=== PATIENT | female | born 1990 | race Caucasian/White ===

== ENCOUNTER 2020-01-25 00:10 | Inpatient (IN) | payer OTHER ==
[~2020-01-25] VITALS: Ht 175.3 cm; Wt 98.4 kg
--- NOTE | 2020-01-25 10:13 | PR ---
[facility] [address] [facility] [place], [place] [address] Signed Progress Notes IP Datetime Report Generated by CPN: 01/25/2020 10:12 PROGRESS NOTES: [id number] Impression: Normal Progression of Labor Procedures: Artificial ROM Plan: Continue Present Management; Anticipate Vaginal Delivery VITAL SIGNS: [id number] Vital Signs: Reviewed; Within Normal Limits EXAM: [id number] Dilatation: 2.0 Effacement: 75 Station: -2 MEMBRANES: [id number] Membranes Status: Ruptured ROM Note: By Dr. Jackson Comments: Tolerating contracitons well, but would like Epidural soon. FETUS A: [id number] FHR Baseline: 130 Variability: Moderate 6-25bpm Accelerations: 15X15 Presentation: Vertex FETUS B: [id number] Signing Physician: Jaycee Jackson MD Copies: ~ *Electronically Signed* 01/25/20 1012 JAYCEE JACKSON MD PATIENT NAME: MADI JOYCE PROGRESS NOTE DATE OF : [birth year] PHYSICIAN: JAYCEE JACKSON MD RPT #: [id number] REPORT IS CONFIDENTIAL AND NOT TO BE RELEASED WITHOUT AUTHORIZATION
--- NOTE | 2020-01-25 15:16 | PR ---
[facility] [address] [facility] [place], [place] [address] Signed Progress Notes IP Datetime Report Generated by CPN: 01/25/2020 15:16 PROGRESS NOTES: [id number] Impression: Normal Progression of Labor Procedures: Intrauterine Pressure Catheter; Scalp Electrode Plan: Continue Present Management; Augmentation; Anticipate Vaginal Delivery VITAL SIGNS: [id number] Vital Signs: Reviewed; Within Normal Limits EXAM: [id number] Dilatation: 2.0 Effacement: 90 Station: -2 MEMBRANES: [id number] Membranes Status: Ruptured ROM Note: By Dr. Jackson Comments: Comfortable with Epidural, on Pitocin for qbour 2 hours, now with definite change. Internal monitors applied. Will continue monitoring. FETUS A: [id number] FHR Baseline: 130 Variability: Moderate 6-25bpm Accelerations: 15X15 Presentation: Vertex FETUS B: [id number] Signing Physician: Jaycee Jackson MD Copies: ~ *Electronically Signed* 01/25/20 1516 JAYCEE JACKSON MD PATIENT NAME: MADI JOYCE PROGRESS NOTE DATE OF : [birth year] PHYSICIAN: JAYCEE JACKSON MD RPT #: [id number] REPORT IS CONFIDENTIAL AND NOT TO BE RELEASED WITHOUT AUTHORIZATION
--- NOTE | 2020-01-25 17:27 | PR ---
[facility] [address] [facility] [place], [place] [address] Signed Progress Notes IP Datetime Report Generated by CPN: 01/25/2020 17:27 PROGRESS NOTES: [id number] Impression: Normal Progression of Labor Other Impressions: Slow Progress Procedures: Intrauterine Pressure Catheter; Scalp Electrode Plan: Continue Present Management VITAL SIGNS: [id number] Vital Signs: Reviewed; Within Normal Limits EXAM: [id number] Dilatation: 5.0 Effacement: 90 Station: -1 MEMBRANES: [id number] Membranes Status: Ruptured ROM Note: By Dr. Jackson Comments: Patietn comfortable with contractions. No change from prior exam per RN, so will increase Pitocin, continue monitoring. FETUS A: [id number] FHR Baseline: 130 Variability: Moderate 6-25bpm Accelerations: 15X15 Presentation: Vertex FETUS B: [id number] Signing Physician: Jaycee Jackson MD Copies: ~ *Electronically Signed* 01/25/20 1727 JAYCEE JACKSON MD PATIENT NAME: MADI JOYCE PROGRESS NOTE DATE OF : [birth year] PHYSICIAN: JAYCEE JACKSON MD RPT #: [id number] REPORT IS CONFIDENTIAL AND NOT TO BE RELEASED WITHOUT AUTHORIZATION
--- NOTE | 2020-01-25 19:52 | PR ---
[facility] [address] [facility] [place], [place] [address] Signed Progress Notes IP Datetime Report Generated by CPN: 01/25/2020 19:52 PROGRESS NOTES: [id number] Impression: Normal Progression of Labor Other Impressions: Slow Progress Procedures: Intrauterine Pressure Catheter; Scalp Electrode Plan: Continue Present Management; Anticipate Vaginal Delivery VITAL SIGNS: [id number] Vital Signs: Reviewed; Within Normal Limits EXAM: [id number] Dilatation: 10.0 Effacement: 100 Station: 0 MEMBRANES: [id number] Membranes Status: Ruptured ROM Note: By Dr. Jackson Comments: Comfortable with Epidural. Will start pushing. FETUS A: [id number] FHR Baseline: 130 Variability: Moderate 6-25bpm Accelerations: 15X15 Presentation: Vertex FETUS B: [id number] Signing Physician: Jaycee Jackson MD Copies: ~ *Electronically Signed* 01/25/201951 JAYCEE JACKSON MD PATIENT NAME: MADI JOYCE PROGRESS NOTE DATE OF : [birth year] PHYSICIAN: JAYCEE JACKSON MD RPT #: [id number] REPORT IS CONFIDENTIAL AND NOT TO BE RELEASED WITHOUT AUTHORIZATION
--- NOTE | 2020-01-25 20:40 | PR ---
[facility] [address] [facility] [place], [place] [address] Signed Progress Notes IP Datetime Report Generated by CPN: 01/25/2020 20:39 PROGRESS NOTES: [id number] Impression: Normal Progression of Labor Other Impressions: Slow Progress Procedures: Intrauterine Pressure Catheter; Scalp Electrode Plan: Continue Present Management VITAL SIGNS: [id number] Vital Signs: Reviewed; Within Normal Limits EXAM: Q8918555 Dilatation: 10.0 Effacement: 100 Station: 0 MEMBRANES: [id number] Membranes Status: Ruptured ROM Note: By Dr. Jackson Comments: Pushing well and strong, increased caput. Will continue monitoring. FETUS A: [id number] FHR Baseline: 130 Variability: Moderate 6-25bpm Accelerations: 15X15 Presentation: Vertex FETUS B: [id number] Signing Physician: Jaycee Jackson MD Copies: ~ *Electronically Signed* 01/25/202038 JAYCEE JACKSON MD PATIENT NAME: MADI JOYCE PROGRESS NOTE DATE OF : [birth year] PHYSICIAN: JAYCEE JACKSON MD RPT #: [id number] REPORT IS CONFIDENTIAL AND NOT TO BE RELEASED WITHOUT AUTHORIZATION
--- NOTE | 2020-01-25 21:31 | PR ---
[facility] [address] [facility] [place], [place] [address] Signed Progress Notes IP Datetime Report Generated by CPN: 01/25/2020 21:31 PROGRESS NOTES: [id number] Impression: Normal Progression of Labor Other Impressions: Slow Progress Procedures: Intrauterine Pressure Catheter; Scalp Electrode Plan: Continue Present Management VITAL SIGNS: C2399670 Vital Signs: Reviewed; Within Normal Limits EXAM: A8812061 Dilatation: 10.0 Effacement: 100 Station: 0 MEMBRANES: [id number] Membranes Status: Ruptured ROM Note: By Dr. Jackson Comments: Pushing well, tolerating contractions, slow but steady progress. Will continue. FETUS A: [id number] FHR Baseline: 130 Variability: Moderate 6-25bpm Accelerations: 15X15 Presentation: Vertex FETUS B: [id number] Signing Physician: Jaycee Jackson MD Copies: ~ *Electronically Signed* 01/25/202130 JAYCEE JACKSON MD PATIENT NAME: MADI JOYCE PROGRESS NOTE DATE OF : [birth year] PHYSICIAN: JAYCEE JACKSON MD RPT #: [id number] REPORT IS CONFIDENTIAL AND NOT TO BE RELEASED WITHOUT AUTHORIZATION
--- NOTE | 2020-01-26 13:31 | PR ---
[facility] [address] [facility] [place] [address] Signed PP Progress Notes Datetime Report Generated by CPN: 01/26/2020 13:31 SUBJECTIVE: [id number] Pain: Within Normal Limits Nausea/Vomiting: Denies Vital Signs: V6903063 Vital Signs: Reviewed; Within Normal Limits Notable Details: PP Hgb./Hct = 8.7/26.0 EXAM: Ongoing Abdomen/Uterus: Normal Lochia: Normal Extremities: Normal IMPRESSION/PLAN/PROCEDURES: [id number] Impression: Normal Progression Other Impression: Anemia Plan: Continue Present Management Procedures: None Progress Notes: Doing well, without complaint, tolerating food well, voiding without difficulty. Discussed anemia Signing Physician: Jaycee Jackson MD Copies: ~ *Electronically Signed* 01/26/20 1331 JAYCEE JACKSON MD PATIENT NAME: MADI JOYCE PROGRESS NOTE DATE OF : [birth year] PHYSICIAN: JAYCEE JACKSON MD RPT #: [id number] REPORT IS CONFIDENTIAL AND NOT TO BE RELEASED WITHOUT AUTHORIZATION
--- NOTE | 2020-01-27 12:27 | PR ---
[facility] [address] [facility] [place], [place] [address] Signed PP Progress Notes Datetime Report Generated by CPN: 01/27/2020 12:27 SUBJECTIVE: [id number] Pain: Within Normal Limits Nausea/Vomiting: Denies Vital Signs: [id number] Vital Signs: Reviewed; Within Normal Limits Notable Details: PP Hgb./Hct = 8.7/26.0 EXAM: Met Cardiovascular: Abnormal Abdomen/Uterus: Normal Lochia: Normal Extremities: Normal Exam Comments: mild sytolic murmer IMPRESSION/PLAN/PROCEDURES: [id number] Impression: Normal Progression Other Impression: Anemia Plan: Discharge Procedures: None Progress Notes: Doing well, without complaint, but baby needs to stay due to heart murmer. WIll make Boarder status. Signing Physician: Jaycee Jackson MD Copies: ~ *Electronically Signed* 01/27/20 1227 JAYCEE JACKSON MD PATIENT NAME: MADI JOYCE PROGRESS NOTE DATE OF : [birth year] PHYSICIAN: JAYCEE JACKSON MD RPT #: [id number] REPORT IS CONFIDENTIAL AND NOT TO BE RELEASED WITHOUT AUTHORIZATION
== END 2020-01-27 13:40 | disposition home or self-care (01) | DRG 807 ==
LOC: FBC 00:10
PROVIDERS: ADMIT General Practice; ATTEND General Practice
PROC: 10E0XZZ Delivery of Products of Conception, External Approach (ICD-10-PCS; principal; 2020-01-25)
PROC: 0KQM0ZZ Repair Perineum Muscle, Open Approach (ICD-10-PCS; 2020-01-25)
PROC: 10907ZC Drainage of Amniotic Fluid, Therapeutic from Products of Conception, Via Natural or Artificial Opening (ICD-10-PCS; 2020-01-25)
PROC: 10H07YZ Insertion of Other Device into Products of Conception, Via Natural or Artificial Opening (ICD-10-PCS; 2020-01-25)
PROC: 3E0P7VZ Introduction of Hormone into Female Reproductive, Via Natural or Artificial Opening (ICD-10-PCS; 2020-01-25)
PROC: 00HU33Z Insertion of Infusion Device into Spinal Canal, Percutaneous Approach (ICD-10-PCS; 2020-01-25)
PROC: 3E0R3BZ Introduction of Anesthetic Agent into Spinal Canal, Percutaneous Approach (ICD-10-PCS; 2020-01-25)
DX: O69.1XX0 Labor and delivery complicated by cord around neck, with compression, not applicable or unspecified (principal); Z37.0 Single live birth; O70.1 Second degree perineal laceration during delivery; Z3A.40 40 weeks gestation of pregnancy; O90.81 Anemia of the puerperium; D64.9 Anemia, unspecified; O99.892 Other specified diseases and conditions complicating childbirth; R01.1 Cardiac murmur, unspecified
CPT/HCPCS: 36415; 85027; A9270; J2590; J2795; J3010; J7120

== ENCOUNTER 2021-06-10 02:53 | Day surgery (SDC) | payer OTHER ==
[~2021-06-10] VITALS: Ht 175.3 cm; Wt 78.9 kg
[~2021-06-10 02:53] MED LIST: LECITHIN1200 M1 PO; PRENATABS FA T1 EACH PO; TYLENOL EXTRA500 MG PO; VITAMIN D-40010 MCG PO
--- NOTE | 2021-06-10 07:09 | NUR ---
06/10/21 0709 Karen Henry 0712-PATIENT ARRIVED TO PACU ON 6L MASK NONAROUSABLE ORAL AIRWAY IN PLACE RR EVEN. SR. IVF INFUSING WITH 20 PITOCIN. SMALL AMT OF DRAINAGE TO SANG PAD. NEW ORDER RECEIVED FROM MARIFER ODONNELL FOR 15 MG TORADOL IVP.
--- NOTE | 2021-06-10 07:51 | NUR ---
0730 RETURNED FROM PACU S O IN ROOM.
--- NOTE | 2021-06-10 09:11 | NUR ---
1588 DR SINGH IN TO TALK WITH PT AND S O. THEN PT UP TO BR VOIDS 100MLS DARK URINE. SMALL AMT BLEEDING. PAD CHANGED. WANTS TO GO HOME.
--- NOTE | 2021-06-11 14:13 | PATH ---
[facility] [address] [facility] [place], [place] [address] Signed SPECIMEN(S): A PRODUCTS OF CONCEPTION SPECIMEN SOURCE: A. PRODUCTS OF CONCEPTION CLINICAL HISTORY: Incomplete AB, vaginal bleeding. FINAL PATHOLOGIC DIAGNOSIS: Products of conception: - Products of conception identified. BRP:[facility]:C2NR MICROSCOPIC EXAMINATION: Histologic sections of all submitted blocks are examined by light microscopy. These findings, together with the gross examination, support the pathologic diagnosis. GROSS DESCRIPTION: The specimen, labeled "KH," and designated on the requisition "products of conception," is received in formalin and consists of membranous and possible lee-brown, spongy tissue fragments with mucus and clot material measuring 12.0 x 11.5 x 2.0 cm in aggregate. /embryonic tissue is not grossly identified. Credit Product Analyst sections are submitted in cassettes (A1-A3). AT (under the direct supervision of a pathologist) The Gross Description was prepared using a voice recognition system. The report was reviewed for accuracy; however, sound-alike word errors, addition and/or deletions may occur. If there is any question about this report, please contact Client Services. PERFORMING LABORATORY: The technical component was performed by [employer] [address] [place] [address] (Licensed Clinical Social Worker: Valentina Carmen MD; CLIA# [id number]). Professional interpretation was performed by [employer] [address] [place] [address] (Licensed Clinical Social Worker: Valentina Carmen MD; CLIA# [id number]). Diagnostician: Luis Manuel Wall MD Pathologist Electronically Signed 06/11/2021 PATIENT NAME: MADI JOYCE PATHOLOGY DATE OF : [birth year] REPORT #: [id number] PHYSICIAN: JESSIKA PATHOLOGY PCP: DEANDRA BELLA MD REPORT IS CONFIDENTIAL AND NOT TO BE RELEASED WITHOUT AUTHORIZATION [address] [place], [place] [address] Signed Copies: ~ PATIENT NAME: MADI JOYCE PATHOLOGY DATE OF : [birth year] REPORT #: [id number] PHYSICIAN: JESSIKA PATHOLOGY PCP: DEANDRA BELLA MD REPORT IS CONFIDENTIAL AND NOT TO BE RELEASED WITHOUT AUTHORIZATION
--- NOTE | 2021-06-11 17:51 | OR ---
[facility] [address] [facility] [place] [address] Signed DATE OF OPERATION: 06/10/2021 SURGEON: Celia Haddad MD PREOPERATIVE DIAGNOSIS: Incomplete Ab. POSTOPERATIVE DIAGNOSIS: Incomplete Ab. PROCEDURE: Suction D and C. ANESTHESIA: General LMA. ESTIMATED BLOOD LOSS: 150 mL. DRAINS: None. INDICATIONS AND FINDINGS: The patient is a 30-year-old female 2, para 1, who is 11+ weeks by her LMP, who was found to have a missed Ab yesterday on ultrasound. She had spotting since Tuesday. However, last p.m. she developed very heavy bleeding with passage of clots. It was difficult to quantify as she was in the shower and remained there for quite some time. She does report fainting. At the time of surgery, exam under anesthesia revealed a uterus which was approximately 10 to 12 week size. It was soft. The cervix was open. It easily accepted a #12 dilator. There was a large amount of tissue in the cavity. DESCRIPTION OF PROCEDURE: The patient was prepped and draped in the dorsal lithotomy position. An open-sided speculum was placed and the anterior lip of the cervix was visualized and grasped with a single-tooth tenaculum. The cervix easily accepted a #12 dilator. Stone forceps were introduced and a large amount of tissue was removed from the uterus in this way. A #11 curved suction curette was then introduced and a large amount of tissue was removed. Following this, there was some brisk bleeding and the patient received IV pitocin drip as well as IM Methergine. Sharp curettage was then done alternating with suction Electronically Signed By: CELIA HADDAD MD 06/11/21 1751 PATIENT NAME: MADI JOYCE OPERATIVE REPORT DATE OF : [birth year] REPORT #: [id number] PHYSICIAN: CELIA HADDAD MD PCP: DEANDRA BELLA MD REPORT IS CONFIDENTIAL AND NOT TO BE RELEASED WITHOUT AUTHORIZATION [facility] [address] [place], [place] [address] Signed curettage until the cavity felt clean and contracted. Her bleeding was minimal at this time. The tenaculum was removed and initially there was some bleeding from the right tenaculum site which responded to pressure. The procedure was terminated. All sponge and needle counts were correct. The patient was then taken to recovery room in good condition. Celia Haddad MD PJW/MODL /[id number] cc: Maxwell Cullen MD Copies: MAXWELL CULLEN MD ~ Electronically Signed By: CELIA HADDAD MD 06/11/21 1751 PATIENT NAME: MADI JOYCE OPERATIVE REPORT DATE OF : [birth year] REPORT #: [id number] PHYSICIAN: CELIA HADDAD MD PCP: DEANDRA BELLA MD REPORT IS CONFIDENTIAL AND NOT TO BE RELEASED WITHOUT AUTHORIZATION
--- NOTE | 2021-06-11 18:04 | CONS ---
[facility] [address] [place], [place] [address] Signed DATE OF CONSULTATION: 06/10/2021 REQUESTING PHYSICIAN: Lynne Vuong MD. HISTORY: The patient is a 30-year-old female, 2, para 1 with an LMP of 03/2021, now at 11+ weeks with complaint of spotting which began on 06/08, but with extremely heavy bleeding starting last night. She did have an ultrasound yesterday on 06/09, which showed a missed AB at 7 weeks. Overnight, she had extremely heavy bleeding with passage of clots. The amount of bleeding was difficult to quantify because she stood in the shower during the worst of the event. She does report fainting. Her bleeding is better currently, but she is still having waves of cramping and bleeding. She is feeling weak and faint at times. She has no other complaints at this point. PAST MEDICAL HISTORY: SURGERIES: 03/2020, she had an I and D of a breast abscess. ILLNESSES: Negative for hypertension, diabetes, asthma, heart murmurs, liver or kidney problems, migraines. ALLERGIES: No drug allergies MEDICATIONS: vitamins. HABITS: No tobacco, alcohol, or drug use. PHYSICAL EXAMINATION: VITAL SIGNS: Blood pressure is 101/58, pulse 68, temperature 98.1. GENERAL: She is well-developed, well-nourished female in no acute distress. She is alert and oriented with appropriate affect. LUNGS: Clear. HEART: Regular rate and rhythm without murmur. ABDOMEN: Soft, nontender, without hepatosplenomegaly. PELVIC: Deferred to the OR. Ultrasound shows no intrauterine . There is a thickened endometrium at 3.2 cm Electronically Signed By: CELIA HADDAD MD 06/11/21 1804 PATIENT NAME: MADI JOYCE CONSULTATION DATE OF : [birth year] REPORT #: [id number] PHYSICIAN: CELIA HADDAD MD PCP: DEANDRA BELLA MD REPORT IS CONFIDENTIAL AND NOT TO BE RELEASED WITHOUT AUTHORIZATION [facility] [address] [place], [place] [address] Signed with vascularity. ER labs showed H and H of 12 and 36.4, white count was 7.1, platelets 261. IMPRESSION: Incomplete AB with continued bleeding and probable retained products. I would recommend proceeding with suction D and C given her ongoing bleeding and evidence of retained products on her ultrasound. The risk of surgery including, but not limited to infection, bleeding, possible need for transfusion were all discussed. She had no questions and requested no further information. PLAN: Suction D and C as soon as this can be arranged. Celia Haddad MD PJJane/MODL /[id number] cc: Dr. Maxwell Cullen Copies: ~ Electronically Signed By: CELIA HADDAD MD 06/11/21 1804 PATIENT NAME: MADI JOYCE CONSULTATION DATE OF : [birth year] REPORT #: [id number] PHYSICIAN: CELIA HADDAD MD PCP: DEANDRA BELLA MD REPORT IS CONFIDENTIAL AND NOT TO BE RELEASED WITHOUT AUTHORIZATION
== END 2021-06-10 08:45 | disposition home or self-care (01) ==
LOC: ED 02:53 → DS 06:03
PROVIDERS: ATTEND Obstetrics & Gynecology
PROC: 10D17ZZ Extraction of Products of Conception, Retained, Via Natural or Artificial Opening (ICD-10-PCS; principal; 2021-06-10 06:27)
DX: O03.4 Incomplete spontaneous abortion without complication (principal); Z20.822 Contact with and (suspected) exposure to COVID-19
CPT/HCPCS: 36415; 76801; 76817; 85025; 86900; C9803; J0690; J1100; J1885; J2001; J2210; J2405; J2590; J2704; J2765; J3010; U0003

== ENCOUNTER 2022-08-19 05:31 | Inpatient (IN) | payer OTHER ==
[~2022-08-19] VITALS: Ht 175.3 cm; Wt 93.4 kg
[2022-08-19 06:51] VITALS: BP 118/55
--- NOTE | 2022-08-19 09:23 | NUR ---
08/19/22 0923 Sheets,Vicky 0903 PT ARRIVED TO PACU ON RA AND RESP EVEN AND UNLABORED. PT DENIES PAIN AND NAUSEA. FUNDAL CHECK AND PLAN OF CARE DISCUSSDED. VSS. HOB INCREASED SLIGHTLY. IV IN RIGHT WRIST INFUSING WITH LR WITH 20 PIT. 0920 BABY TO CHEST WITH FBC RN. HOB INCREASED AND PT CONTINUES TO DENY CONCERNS.
[2022-08-19 09:36] VITALS: BP 101/62
--- NOTE | 2022-08-20 07:36 | OR ---
[facility] [address] [place] [address] Signed DATE OF OPERATION: 08/19/2022 SURGEON: Stacy Campbell DO CHILDCARE PROVIDER: Celia Haddad MD Electronically Signed By: STACY CAMPBELL, 08/20/22 0736 PATIENT NAME: MADI JOYCE OPERATIVE REPORT DATE OF : [birth year] REPORT #: [id number] PHYSICIAN: STACY CAMPBELL DO PCP: DEANDRA BELLA MD REPORT IS CONFIDENTIAL AND NOT TO BE RELEASED WITHOUT AUTHORIZATION [address] [place] [address] Signed PROCEDURE: Electronically Signed By: STACY CAMPBELL, 08/20/22 0736 PATIENT NAME: MADI JOYCE OPERATIVE REPORT DATE OF : [birth year] REPORT #: [id number] PHYSICIAN: STACY CAMPBELL DO PCP: DEANDRA BELLA MD REPORT IS CONFIDENTIAL AND NOT TO BE RELEASED WITHOUT AUTHORIZATION [facility] [address] [place], [place] [address] Signed External cephalic version and primary low-transverse . PREOPERATIVE DIAGNOSES: Breech presentation Term 39 weeks gestation. POSTOPERATIVE DIAGNOSES: Term , delivered Successful external cephalic version Non-reassuring heart tones Short cord ANESTHESIA: Epidural. BLOOD LOSS: 750 mL. FINDINGS: Prior to ECV: breech position with head at maternal midline under ribcage with back to maternal right, placenta anterior fundal on the left side At delivery: term viable male delivered in the left occiput anterior position, weighing 8 pounds 12 ounces. Apgars of 9 and 9 at 1 and 5 minutes respectively. Normal-appearing bilateral fallopian tubes and ovaries. INDICATIONS: The patient is a 31 yo at 39 weeks gestation with breech presentation. Risks, benefits, and alternatives were discussed at length with the patient and father of the baby including risk of abruption, intolerance to version , failed version, all of which could require emergency delivery. Plan was for induction to follow if version successful and if failed version or for indication. All the patient's questions were answered to the best of my ability to their apparent satisfaction. Consents were signed. DESCRIPTION OF PROCEDURE: Breech presentation was confirmed on limited bedside US for postion. The Electronically Signed By: STACY CAMPBELL DO 08/20/22 0736 PATIENT NAME: MADI JOYCE OPERATIVE REPORT DATE OF : [birth year] REPORT #: [id number] PHYSICIAN: STACY CAMPBELL DO PCP: DEANDRA BELLA MD REPORT IS CONFIDENTIAL AND NOT TO BE RELEASED WITHOUT AUTHORIZATION [facility] [address] [place], [place] [address] Signed patient was taken back to the operating room where epidural anesthesia was placed by FLOTATION OPERATOR. Herrera catheter was placed and she was positioned supine with a leftward tilt. Once adequate anesthesia was confirmed, presentation with head at midline and back to maternal right, placenta anterior fundal on the left was confirmed again with bedside ultrasound. hips were elevated from the pelvis and gentle pressure was used to guide the baby in a forward roll motion with the help of camp assistant. After one attempt, baby was successfully verted to cephalic position; however, heart rate was noted to be in the 50s to 60s. Doppler was applied. heart tone persisted in the 50s to 60s and decision was made for primary for non-reassuring heart tones. Heart rate was checked one final time and was still noted to be 65. Verbal consent was obtained again from the patient. Abdomen was prepped with Betadine and she was sterilely draped. A Pfannenstiel incision was made with a scalpel and carried down to underlying layer of fascia. Fascia was incised with the scalpel and incision was extended laterally with Holley scissors. Underlying rectus muscle was dissected off bluntly and sharply with Holley scissors after grasping first the inferior margin of fascia with Blayne's, then the superior margin with Blayne's in similar fashion. Peritoneum was entered bluntly and extended with lateral traction. Vikarm retractor was placed without difficulty. Hysterotomy was made with a scalpel and uterus was entered bluntly, digitally with amniotomy of large amount of clear fluid. head was easily delivered through the hysterotomy with slightly more difficulty delivering each shoulder and remainder of the baby's body due to large stature. Baby gave a spontaneous cry upon delivery of the head. No nuchal cord was noted, but following delivery of the baby, the umbilical cord was noted to be abnormally short. Cord was doubly clamped and cut. Baby was handed to waiting nursery team. Segment of cord was collected for cord gases and cord blood was collected for type and Darin. Placenta was manually extracted. Uterus was cleared of clot and debris. Hysterotomy was closed in a double-layer fashion, first with 0 Monocryl in a running locked manner,second with 0 Monocryl in an imbricating manner. Excellent hemostasis noted following imbrication. Prior to first layer of closure, brisk bleeding had been noted and TXA 1g IV was administered. Perforating vessels in the peritoneum were cauterized with Bovie cautery. The pelvis was suction irrigated with warm sterile saline and noted to be hemostatic. Tubes and ovaries were inspected and found to be normal as noted above. Vikram retractor was removed. Peritoneum was closed with 2-0 Vicryl in a running fashion. Rectus muscle was reapproximated at midline with 0 Vicryl in a simple interrupted fashion x3. Perforating vessels Electronically Signed By: STACY CAMPBELL DO 08/20/22 0736 PATIENT NAME: MADI JOYCE OPERATIVE REPORT DATE OF : [birth year] REPORT #: [id number] PHYSICIAN: STACY CAMPBELL DO PCP: DEANDRA BELLA MD REPORT IS CONFIDENTIAL AND NOT TO BE RELEASED WITHOUT AUTHORIZATION [facility] [address] [place] [id number] Signed were cauterized with Bovie cautery and this layer was suction irrigated with warm sterile saline and noted to be hemostatic. The fascia was closed with 0 Vicryl in a running fashion, first from right apex to midline, then from left apex to midline meeting in the middle. Subcutaneous layer was suction irrigated with warm sterile saline. Perforating vessels were cauterized with Bovie cautery until hemostasis was achieved. The subcutaneous layer was reapproximated with 3-0 Vicryl in a running fashion and skin was closed with palak. All sponge and instrument counts were correct. Uterus was Crede'd and noted to be firm. The patient remained in the OR for placement of TAP blocks by Anesthesia. Stacy Campbell DO EMZ/MODL /[id number] Copies: ~ Electronically Signed By: STACY CAMPBELL DO 08/20/22 0736 PATIENT NAME: MADI JOYCE OPERATIVE REPORT DATE OF : [birth year] REPORT #: [id number] PHYSICIAN: STACY CAMPBELL DO PCP: DEANDRA BELLA MD REPORT IS CONFIDENTIAL AND NOT TO BE RELEASED WITHOUT AUTHORIZATION
--- NOTE | 2022-08-20 08:55 | PR ---
[facility] [address], [place] [address] Signed PP Progress Notes Datetime Report Generated by ANABEL: 08/20/2022 08:54 SUBJECTIVE: [id number] Pain: Abnormal Nausea/Vomiting: Denies Flatus: Yes Bowel Movement: No Vital Signs: [id number] Vital Signs: Reviewed; Within Normal Limits EXAM: Ongoing Cardiovascular: Normal Respiratory: Normal Abdomen/Uterus: Normal Lochia: Normal Vulva/Perineum: Normal Extremities: Normal Incision: Normal Progress: Normal Exam Comments: NAD, sitting up in bed RRR No dyspnea/ retractions Abd SNTND Incision: c/d/i, margins well-approximated, no erythema/ discharge Ext: trace BL pedal edema, neg Britton's BL IMPRESSION/PLAN/PROCEDURES: [id number] Impression: Normal Progression Plan: Continue Present Management Other Procedures: Iron infusion Progress Notes: 31 yo POD#1 s/p PLTCS for NRFHT after version -progressing well postop: ambulating, voiding, tolerating regular diet. Pain controlled with toradol and orals and ice. -Hgb 9.2 from 10.9 on admission, discussed IV iron infusion risks/ benefits - will proceed with infusion today -Planning partner vasectomy for contraception Anticipate DC to home tomorrow or Tuesday Signing Physician: Stacy Campbell DO *Electronically Signed* 08/20/22 0854 STACY CAMPBELL DO PATIENT NAME: MADI JOYCE PROGRESS NOTE DATE OF : 92 PHYSICIAN: STACY CAMPBELL DO RPT #: [id number] REPORT IS CONFIDENTIAL AND NOT TO BE RELEASED WITHOUT AUTHORIZATION [facility] [address] [place] [id number] Signed Copies: ~ *Electronically Signed* 08/20/22 0854 STACY CAMPBELL DO PATIENT NAME: MADI JOYCE PROGRESS NOTE DATE OF : 92 PHYSICIAN: STACY CAMPBELL DO RPT #: [id number] REPORT IS CONFIDENTIAL AND NOT TO BE RELEASED WITHOUT AUTHORIZATION
--- NOTE | 2022-08-21 10:42 | PR ---
[facility] [address] [place], [place] [address] Signed PP Progress Notes Datetime Report Generated by CPN: 08/21/2022 10:42 SUBJECTIVE: [id number] Pain: Within Normal Limits Nausea/Vomiting: Denies Flatus: Yes Bowel Movement: No Vital Signs: [id number] Vital Signs: Reviewed; Within Normal Limits EXAM: Ongoing Cardiovascular: Normal Respiratory: Normal Abdomen/Uterus: Normal Lochia: Normal Vulva/Perineum: Normal Breasts: Normal CVA Tenderness: Normal Extremities: Normal Incision: Normal Progress: Normal Exam Comments: NAD, sitting in chair nursing baby Abd: TND, FFBU IMPRESSION/PLAN/PROCEDURES: [id number] Impression: Normal Progression Plan: Continue Present Management; Discharge Other Procedures: Iron infusion Progress Notes: 31 yo POD#2 s/p PLTCS for NRFHT immediately following external cephalic version -progressing well postop/ : ambulating, voiding, tolerating regular diet, pain well-controlled with orals, lochia light. -s/p IV iron infusion for acute blood loss, denies dizziness/ lightheadedness/shortness of breath with ambulation. - well, plan for outpatient staple removal on Tuesday. -planning partner vasectomy for contraception Signing Physician: Stacy Campbell DO Copies: *Electronically Signed* 08/21/22 1042 STACY CAMPBELL DO PATIENT NAME: MADI JOYCE PROGRESS NOTE DATE OF : 92 PHYSICIAN: STACY CAMPBELL DO RPT #: [id number] REPORT IS CONFIDENTIAL AND NOT TO BE RELEASED WITHOUT AUTHORIZATION [facility] [address] [place] [id number] Signed ~ *Electronically Signed* 08/21/22 1042 STACY CAMPBELL DO PATIENT NAME: MADI JOYCE PROGRESS NOTE DATE OF : 92 PHYSICIAN: STACY CAMPBELL DO RPT #: [id number] REPORT IS CONFIDENTIAL AND NOT TO BE RELEASED WITHOUT AUTHORIZATION
== END 2022-08-21 11:40 | disposition home or self-care (01) | DRG 787 ==
LOC: FBC 05:31
PROVIDERS: ADMIT Obstetrics & Gynecology; ATTEND Obstetrics & Gynecology
PROC: 4A1HXCZ Monitoring of Products of Conception, Cardiac Rate, External Approach (ICD-10-PCS; 2022-08-19)
PROC: 10S0XZZ Reposition Products of Conception, External Approach (ICD-10-PCS; 2022-08-19)
PROC: 10D00Z1 Extraction of Products of Conception, Low, Open Approach (ICD-10-PCS; principal; 2022-08-19 07:30)
DX: O32.1XX0 Maternal care for breech presentation, not applicable or unspecified (principal); D62 Acute posthemorrhagic anemia; O90.81 Anemia of the puerperium; Z3A.39 39 weeks gestation of pregnancy; Z37.0 Single live birth; Z67.40 Type O blood, Rh positive; Z20.822 Contact with and (suspected) exposure to COVID-19; O69.3XX0 Labor and delivery complicated by short cord, not applicable or unspecified
CPT/HCPCS: 36415; 76942; 82803; 85027; 86850; 86900; 86901; 87502; A9270; J0690; J1885; J2370; J2405; J2590; J2795; J3010; J7121; Q0138; U0002

== ENCOUNTER 2025-02-11 08:50 | Emergency (ER) | payer OTHER ==
[~2025-02-11] VITALS: Ht 175.3 cm; Wt 82.2 kg
[2025-02-11] MEDS ORDERED: SODIUM CHLORIDE 0.9% 1,000 ML IV ONE (09:15)
[2025-02-11] MEDS ORDERED: MORPHINE SULFATE 4 MG/ML VIAL IV PRN (09:15)
[2025-02-11 09:20] LABS: BASOPHILS 0.2 % (0.1-1.2); EOSINOPHILS 0.4 % (0.7-5.8); LYMPHOCYTES 15.2 % (19.3-51.7); MCH 30.0 PG (25.6-32.2); MCHC 33.3 g/dL (32.2-35.5); MCV 90.1 fL (79.4-94.8); MONOCYTES 3.2 % (4.7-12.5); NEUTROPHILS 80.8 % (34.0-71.1); RBC 4.64 M/uL (3.93-5.22)
[2025-02-11 09:40] LABS: ALT (SGPT) 29.0 U/L (14-59); AST (SGOT) 17.0 U/L (15-37); GLOMERULAR FILTRATION RATE,EST 116.0 mL/min (>60); PROTEIN, TOTAL 7.4 g/dL (6.4-8.2); UREA NITROGEN 8.0 mg/dL (7-18)
[2025-02-11 09:47] LABS: CORONAVIRUS COVID-19 AG NEGATIVE (NEGATIVE)
[2025-02-11 10:28] LABS: BLOOD/HGB, URINE TRACE-I (Negative); KETONE, URINE NEGATIVE (Negative); LEUK ESTERASE, URINE NEGATIVE (negative); NITRITE, URINE NEGATIVE (negative)
[2025-02-11 10:37] LABS: BACTERIA, URINE NONE SEEN /hpf (negative); CASTS, URINE NONE SEEN \\lpf; CRYSTALS, URINE NONE SEEN (0-1+); EPITHELIAL CELLS, URINE SQUAMOUS 1+ /lpf (0-1+); REFLEX CULTURE, URINE No (No)
[2025-02-11] MEDS ORDERED: ONDANSETRON ODT4 MG PO (10:38)
[2025-02-11 10:55] VITALS: BP 105/52
== END 2025-02-11 10:54 | disposition home or self-care (01) ==
LOC: ED 08:50
PROVIDERS: Emergency Medicine
DX: A08.4 Viral intestinal infection, unspecified (principal); Z79.899 Other long term (current) drug therapy
CPT/HCPCS: 36415; 80053; 81001; 83690; 84703; 85025; 99284; J7030